=== PATIENT | female | born 1950 | race Caucasian/White ===

== ENCOUNTER 2017-02-12 12:40 | Observation (INO) | payer MEDICARE, OTHER ==
[2017-02-12] MEDS ORDERED: NS 0.9% 1000 ML* 1,000 ML IV ONE (13:40)
--- NOTE | 2017-02-12 14:11 | RAD ---
Indication: Transient visual disturbance. CT of the brain was performed without IV contrast. Ventricular structures are midline. No midline shift is noted. The extraction spaces are unremarkable. There is no evidence of intracranial mass or hemorrhage. No other high or low density lesions are identified. Mastoid air cells and paranasal sinuses are grossly unremarkable. IMPRESSION: No intracranial mass or hemorrhage present.
--- NOTE | 2017-02-12 14:22 | RAD ---
INDICATION: Weakness COMPARISON: August 24, 2014 TECHNIQUE: An AP portable view obtained at 1350 hours is submitted. FINDINGS: Bones/Soft Tissues: There are no acute bony findings. Cardiomediastinal: The cardiomediastinal silhouette is normal. Lungs: There are no infiltrates. There is mild hyperinflation. Pleura: There are no pleural effusions. Other: None IMPRESSION: HYPERINFLATION. NO ACTIVE DISEASE.
[2017-02-12 14:24] LABS: Hematocrit 47 % (35-47); Hemoglobin 15.4 g/dl (12.0-16.0); Mean Corpuscular HGB Conc 33 g/dl (31-36); Mean Corpuscular Hemoglobin 31 pg (27-31); Mean Corpuscular Volume 93 fL (80-97); Mean Platelet Volume 7 um3 (7.4-10.4); Red Blood Count 5.03 10^6/ul (4.0-5.4); Red Cell Distribution Width 13 % (10.5-15); White Blood Count 8.6 10^3/ul (3.5-10.8)
[2017-02-12 14:47] LABS: BUN/Creatinine Ratio 15.8 (8-20); Calcium 9.2 mg/dL (8.6-10.3); EGFR African American 136.5 (>60); EGFR Non-African American 106.1 (>60); Globulin 2.7 g/dL (2-4); Total Bilirubin 0.4 mg/dL (0.2-1.0); Total Protein 6.7 g/dL (6.4-8.9)
[2017-02-12 14:57] LABS: Potassium 4.5 mmol/L (3.5-5.0)
[2017-02-12 16:32] LABS: Urine Bilirubin Negative (Negative); Urine Glucose Negative (Negative); Urine Nitrite Negative (Negative)
[2017-02-12] MEDS ORDERED: hydrALAZINE IV* 20 MG/ML VIAL IV SLOW PU PRN (17:32)
[2017-02-12] MEDS ORDERED: Nicotine Inhaler* 10 MG AMP INH PRN (17:32)
[2017-02-12] MEDS ORDERED: Ondansetron INJ* 2 MG/ML VIAL IV PRN (17:34)
[2017-02-12] MEDS ORDERED: Acetaminophen TAB* 325 MG PO PRN (17:34)
[2017-02-12] MEDS ORDERED: Aspirin TAB* 325 MG PO ONE (17:36)
[2017-02-12] MEDS ORDERED: Meclizine TAB* 12.5 MG PO PRN (17:37)
[2017-02-12] MEDS ORDERED: Iohexol 350* (CONTRAST) 500 ML MDV IV ONE (17:41)
[2017-02-12] MEDS ORDERED: Enoxaparin(*) 40 MG/0.4 ML SYR SUBCUT SCH (18:00)
--- NOTE | 2017-02-12 19:08 | RAD ---
INDICATION: TIA. Visual change COMPARISON: CT brain February 12, 2017 TECHNIQUE: Axial source images were acquired with coronal and sagittal reconstructions. CT angiographic technique was utilized with injection of 80 mL Omnipaque 350. FINDINGS: Aortic arch: There are no CT angiogram abnormalities of the arch or the great vessels arising from the arch. There is a common origin of the carotid arteries in the left vertebral artery originates directly from the aorta. Right carotid: The internal carotid artery, carotid bifurcation, extracranial portions of the internal carotid artery, carotid artery at the skull base, carotid siphon, and carotid termination appear widely patent. There is minor calcific plaque at the carotid bifurcation and at the right carotid siphon. Left carotid:The internal carotid artery, carotid bifurcation, extracranial portions of the internal carotid artery, carotid artery at the skull base, carotid siphon, and carotid termination appear widely patent. There is minor calcified plaque at the bifurcation.. Right middle and anterior cerebral arteries: There are no CT angiographic abnormalities of the middle or anterior cerebral arteries. Left middle and anterior cerebral arteries: There are no CT angiographic abnormalities of the middle or anterior cerebral arteries Right vertebral: The vertebral artery is patent but very diminutive. Left vertebral: The left vertebral artery is dominant and its origin and has an anterior course before entering the vertebral foramen. Basilar artery: The basilar artery and basilar tip appear normal. Posterior cerebral arteries: The right posterior cerebral artery appears normal. There is a origin of the left posterior cerebral artery. [place]: The CT angiographic appearance of the [place] is with origin of the left posterior cerebral artery is noted above. Source images show no evidence of mass or adenopathy within the neck. There are no focal parenchymal abnormalities or abnormal areas of enhancement. IMPRESSION: NO SIGNIFICANT CT ANGIOGRAPHIC ABNORMALITIES. THERE ARE NORMAL VARIANTS AND THERE ARE MILD ATHEROSCLEROTIC CHANGES WITHOUT EVIDENCE OF SIGNIFICANT STENOSIS, ANEURYSM, OR BRANCH OCCLUSION. CPT II Codes: 3100F PQRS
--- NOTE | 2017-02-12 20:08 | RAD ---
INDICATION: TIA COMPARISON: CT brain same date; CTA head and neck same date TECHNIQUE: sagittal T1 FLAIR, axial diffusion, axial T1 FLAIR, and SWI images were acquired. T2-weighted sequences cannot be completed due to patient claustrophobia. FINDINGS: Craniocervical junction: The craniocervical junction appears normal. Ventricles/sulci: There is moderate cortical atrophy with compensatory dilatation of the CSF spaces. Brain parenchyma: There are no focal parenchymal abnormalities. There is no evidence of intracranial mass or mass effect. The diffusion weighted images show several small gyriform areas of increased signal in the left posterior parietal region near the vertex which could represent tiny foci of ischemia. Intracranial hemorrhage: There is no intracranial hemorrhage. Extra-axial spaces: There are no extra-axial fluid collections or masses. Orbits: There are no MR abnormalities of the orbital structures. Paranasal sinuses/mastoid: The paranasal sinuses are clear. The mastoid air cells are well aerated.. Vascular: No abnormalities are seen. Other: None IMPRESSION: A LIMITED EXAMINATION WAS PERFORMED DUE TO PATIENT CLAUSTROPHOBIA. THERE IS MODERATE CORTICAL ATROPHY. THERE MAY BE SEVERAL FOCI OF ACUTE ISCHEMIA IN LEFT POSTERIOR PARIETAL REGION NEAR THE VERTEX.
[2017-02-12] MEDS: Amoxicillin/Clavulanate TAB* 875 MG PO SCH (22:15)
--- NOTE | 2017-02-12 23:11 | ED ---
Mikala Mack Alok, scribed for Nickolas Fitzpatrick MD on 02/12/17 at 1343 . Dizziness - HPI Summary HPI Summary: 67F presents to the ED for dizziness for the last few weeks on and off, worsening temporarily during an episode a few days ago. Pt states that a few days ago she was watching television when the images on screen began to droop accompanied by dizziness and a slight KELLY. Pt states this visual disturbance lasted minutes before subsiding. Pt was unable to see her PCP prompting her visit to the ED today. Pt states her dizziness worsens with move/bending over and improves with rest. Pt denies nausea, fever, hematuria, or dysuria. Pt denies expressive aphasia or facial droop. Pt denies h/o stroke, HTN, or h/o migraine. - History Of Current Complaint Chief Complaint: EDDizziness Stated Complaint: DIZZINESS Hx Obtained From: Patient Timing: Intermittent Episode Lasting Severity Initially: Moderate Severity Currently: Moderate Character: Dizzy Aggravating Factor(s): Exertion, Position Change Alleviating Factor(s): Rest Associated Signs And Symptoms: Positive: Visual Changes, Other: - KELLY. Negative : Nausea, Fever - Allergies/Home Medications Allergies/Adverse Reactions: Allergies Allergy/AdvReac Type Severity Reaction Status Date / Time No Known Allergies Allergy Verified 05/01/13 09:25 PMH/Surg Hx/FS Hx/Imm Hx Cardiovascular History: Denies: Hx Hypertension Neurological History: Denies: Hx CVA, Hx Migraine - Surgical History Surgery Procedure, Year, and Place: c section Infectious Disease History: No Infectious Disease History: Denies: History Other Infectious Disease, Traveled Outside the [place] in Last 30 Days - Family History Known Family History: Positive: Other - No - Breast CA - Social History Occupation: Retired Lives: With Family Alcohol Use: Occasionally Substance Use Type: Reports: None Smoking Status (MU): Light Every Day Tobacco Smoker Review of Systems Negative: Fever, Chills Positive: Blurred Vision. Negative: Erythema Negative: Sore Throat Negative: Chest Pain Negative: Shortness Of Breath, Cough Negative: Abdominal Pain, Vomiting, Nausea Negative: dysuria, hematuria Negative: Myalgia, Edema Negative: Rash Neurological: Other - Dizziness. Negative: expressive aphasia, facial droop Positive: Headache All Other Systems Reviewed And Are Negative: Yes Physical Exam - Summary Physical Exam Summary: Constitutional: Well-developed, Well-nourished, Alert. (-) Distressed Skin: Warm, Dry HENT: Eyes: Conjunctiva normal Neck: Musculoskeletal ROM normal neck. (-) JVD, (-) Stridor, (-) Tracheal deviation Cardio: Rhythm regular, rate normal, Heart sounds normal; Intact distal pulses; The pedal pulses are 2+ and symmetric. Radial pulses are 2+ and symmetric. (-) Murmur Pulmonary/Chest wall: Effort normal. (-) Respiratory distress, (-) Wheezes, (-) Rales Abd: Soft. (-) Tenderness, (-) Distension, (-) Guarding, (-) Rebound Musculoskeletal: (-) Edema Lymph: (-) Cervical adenopathy Neuro: Alert, Oriented x3, Strength normal, Cranial nerves II-XII are grossly intact. (-) Dysmetria, (-) Nystagmus, (-) Ataxia by finger to nose testing, (-) Sensory deficit. Psych: Mood and affect Normal Triage Information Reviewed: Yes Vital Signs On Initial Exam: Initial Vitals Temp Pulse Resp BP Pulse Ox 97.6 F 80 18 179/111 100 02/12/17 12:49 02/12/17 12:49 02/12/17 12:49 02/12/17 12:49 02/12/17 12:49 Vital Signs Reviewed: Yes Diagnostics - Vital Signs Vital Signs Temp Pulse Resp BP Pulse Ox 02/12/17 12:53 97.6 F 72 20 179/111 100 02/12/17 12:49 97.6 F 80 18 179/111 100 - Laboratory Result Diagrams: 02/12/17 14:15 02/12/17 14:15 Lab Statement: Any lab studies that have been ordered have been reviewed, and results considered in the medical decision making process. - Radiology CXR Xray Interpretation: Positive (See Comments) - IMPRESSION: HYPERINFLATION. NO ACTIVE DISEASE. Radiology Interpretation Completed By: Radiologist - CT Brain CT CT Interpretation: Positive (See Comments) - IMPRESSION: No intracranial mass or hemorrhage present. CT Interpretation Completed By: Radiologist - EKG 1310 Cardiac Rate: NL - 68 bpm EKG Rhythm: Sinus Rhythm EKG Interpretation: No STEMI. Dizzy Course/Dx - Course Assessment/Plan: Discussed patient care with Dr. Whitney (Neurologist) @ 1620 - Pt could recieve an expidited TIA workup as OP, but since pt PCP is on vacation this cannot happen. - Diagnoses Differential Diagnosis/HQI/PQRI: Transient Ischemic Attack - R/o Provider Diagnoses: Dizziness, Visual disturbance - Provider Notifications Discussed Care Of Patient With: Sandee Felicia - Will admit pt to [facility] Time Discussed With Above Provider: 16:07 Discharge - Discharge Plan Condition: Stable Disposition: ADMITTED TO [facility] Referrals: Phoenix Castillo MD [Primary Care Provider] - The documentation as recorded by the Mikala sommers Alok accurately reflects the service I personally performed and the decisions made by , Nickolas Fitzpatrick MD.
--- NOTE | 2017-02-12 23:34 | HP ---
HISTORY AND PHYSICAL: * ADDENDUM: Mr. Cardoza is a 67-year-old female, who has had problems with upper respiratory infection for the past several days and who presented with dizziness that had been ongoing for 3 weeks and an episode of visual disturbance [address] Day saw the patient in ED evaluation and recommended TIA workup. The patient is going to be placed on overnight observation with further TIA workup as documented in history and physical dictated by Callie Infante NP, on 02/12/17, with which I agree. [id number]/[facility] #: [id number] [facility]
--- NOTE | 2017-02-13 00:07 | HP ---
ATTENDING PHYSICIAN ADDENDUM NOW INCLUDED ON THIS REPORT CC: KHAI Che* MEDICINE HISTORY AND PHYSICAL: DATE OF ADMISSION: 02/12/17 PROVIDER: Hari Garnica NP ATTENDING PHYSICIAN: Dr. Stefania Sultana* (as dictated by Hari Garnica NP). CONSULTING PHYSICIAN: Dr. Marilou Whitney. PRIMARY CARE PROVIDER: KHAI Che CHIEF COMPLAINT: Dizziness. HISTORY OF PRESENT ILLNESS: Ms. Cardoza is a 67-year-old female with no reported significant past medical history, who presented to the ER today for evaluation of dizziness and a transient episode of visual disturbance. The patient states that she has been having issues with dizziness off and on for several weeks now. Pharmacy records show that she has been on levofloxacin and azithromycin for treatment of a suspected sinus infection. This was prescribed by her PCP. Of note, the patient states that she did not finish her previous prescription because it caused diarrhea and she stopped taking it. At any case , the patient felt as if the dizziness started to improve for a while; however, on Saturday, February 09, she reports that she was sitting and watching TV and then had an experience where she felt like the eyes were elongated and distorted and this lasted for approximately 5 minutes. Following this occurrence, the patient felt dizzy and also describes a headache across the front of her forehead and this resolved within half an hour. She has had intermittent dizziness since then and did attempt to reach her PCP on Saturday; however, he is out of town on vacation. She finally came in today for further evaluation, as she suspected this may represent a larger issue and was concerned. She does report some dizziness this morning with accompanying headache, but none currently. She denies headache right now. When describing the dizziness, she denies room spinning or feeling as if she is going to fall or pass out. She does state that she mostly feels off balance and she mostly noticed it when she is changing position or bending or to pick something up. She states that she no longer even bends over to reach for things because she knows she is going to get dizzy and she also denies moving quickly and states that she changes positions very slowly in order to prevent any dizzy episodes. She has been treating her sinus infection with Claritin and Mucinex. She does take ibuprofen occasionally for her headaches. In the ER, the patient's laboratory findings and imaging were mostly benign. Her lungs do show hyperinflation on the chest x-ray. She is notably hypertensive here in the ER, but states that she has no previous history of hypertension and states that her blood pressures are usually in the 120s to 130s for systolic pressure. PAST MEDICAL HISTORY: The patient states that she was told that she has pre COPD, but has never had any formal evaluation for this. HOME MEDICATIONS: The patient takes: 1. Aspirin 81 mg daily. 2. Claritin 10 mg daily p.r.n. 3. Guaifenesin ER 600 mg b.i.d. p.r.n. ALLERGIES: No known allergies. FAMILY HISTORY: She reports her mother had hypertension who at age 72 and a brother with heart disease. SOCIAL HISTORY: She reports drinking a few cups of coffee today and feels that she does drink a good amount of water and fluid intake. She does report daily alcohol use and states that she drinks a couple of glasses of wine most nights. She is a current tobacco user and states that she has recently cut down from a pack per day to half a pack per day. She has a 30- to 40-year history of smoking. 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 She lives at home with her domestic partner, Perry Garsia. She is independent with her ADLs. Her surrogate decision maker is Perry Garsia, her domestic partner. REVIEW OF SYSTEMS: As per HPI. A 12-point review of systems was completed. All those not mentioned are negative. PHYSICAL EXAMINATION GENERAL: Ms. Cardoza is a very pleasant 67-year-old female who is sitting up in the ED stretcher, in no acute distress. VITAL SIGNS: Temperature 97.6, heart rate 72, respiratory rate 16, blood pressure 163/89, and O2 saturations 98% on room air. HEENT: Head is atraumatic, normocephalic. Face is symmetrical. Pupils are equal, round, reactive to light and accommodation. Extraocular movements are intact. There is no tenderness along the frontal and ethmoid sinuses. Oral mucosa appears moist. No oropharyngeal erythema noted. NECK: Supple. No lymphadenopathy appreciated. No JVD noted. RESPIRATORY: Lungs are clear to auscultation. Slightly diminished. CARDIAC: S1, S2 heart sounds. Regular rate and rhythm. No murmurs, rubs, or gallops. There is no peripheral edema. The patient does have 2+ distal pulses to the lower extremities. ABDOMEN: Soft, nontender, nondistended. MUSCULOSKELETAL: There is no clubbing or cyanosis. The patient has full range of motion in all major joints. NEURO: Cranial nerves II through XII are grossly intact. The patient moves all extremities. Sensation is intact to lower extremities to light touch. The patient is able to perform [id number] testing, has 5/5 strength in the upper and lower extremities. [place]erry Operator are equal bilaterally. There is no facial droop. The patient's speech is clear. PSYCH: She is alert and oriented x3. Affect is appropriate. SKIN: Limited assessment, but appears grossly intact. DIAGNOSTIC STUDIES/LAB DATA: CBC: WBC 8.6, hemoglobin 15.4, hematocrit 47, platelet count 264. CMP: Sodium 138, potassium 4.5, chloride 104, BUN 9, creatinine 0.57, glucose 89, lactic acid 0.8, calcium 9.2. Total bilirubin 0.4 , AST 19, ALT 11, alk phos 55. Total protein 6.7, albumin 4.0. Urinalysis shows trace ketones. CT of the brain shows no intracranial mass or hemorrhage present. Chest x-ray shows mild hyperinflation of the lungs, but no active disease, and her EKG shows normal sinus rhythm with no ST elevations or ischemic changes. ASSESSMENT AND PLAN: Ms. Cardoza is a 67-year-old female, who presented with dizziness and an episode of visual disturbance with concern for potential transient ischemic attack. She will be admitted under observation to the telemetry unit. Plan is as follows: 1. Dizziness with visual disturbance: Continue to monitor the patient on telemetry. As her physician is out of town, it would be prudent to check an MRI and CTA following this event as she may have a recurrence before getting in to see her PCP. We will also check an echocardiogram, neurological checks, and monitor her on the telemetry unit. We will check a lipid profile and A1c. The patient has been advised to stop smoking as this is increasing her risk factors. She also appears to be hypertensive, although she denies any previous history of this. The case was discussed with Dr. Whitney. The patient's symptoms may represent exacerbation of her sinusitis, but this also may represent a transient ischemic attack or perhaps a migraine. Appreciate neurological input. 2. Sinusitis: The patient appears and sounds chronically congested. She did not finish her previously prescribed antibiotic and with her continued dizziness and reports of headaches, it would be beneficial for her to finish a full course of antibiotics in order to treat this. We will continue her Claritin and Mucinex. Continue to monitor. 3. High blood pressure: The patient's blood pressure was noted to be elevated here in the ER with systolic pressures noted in the 170s up to the 180s. I am not sure how accurate this is as it does seem likely variable; however, given the patient's symptoms and concern for transient ischemic attack, we will closely monitor her blood pressures. She is not on any blood pressure medications at this time. I will order p.r.n. hydralazine to track the necessity of this medication. Continue to follow. 4. Question of chronic obstructive pulmonary disease: The patient states that she has been diagnosed with pre-chronic obstructive pulmonary disease, but has never had pulmonary function tests and is not currently on a maintenance inhaler. She is currently not in any respiratory distress. I did not appreciate any significant wheezing or adventitious lung sounds. Continue to follow. The patient is recommended to follow up with her PCP for PFTs and I have advised her to stop smoking. 5. High-risk alcohol use: The patient drinks wine most nights. I do not see any abnormal LFTs or evidence of . We will monitor closely. The patient was advised that frequent alcohol use will increase her risk for frequent health issues and she has received this information well. 6. Tobacco abuse: The patient is a [id number] smoker. She is trying to cut back on her smoking. I have advised her the importance of quitting smoking. While she is here, we will order for nicotine replacement. 7. FEN: The patient is ordered a heart-healthy diet. 8. DVT prophylaxis: The patient is ordered subcu Lovenox. 9. Code status: She is a full code. TIME SPENT: Time spent on this admission was approximately 60 minutes, more than half the time was spent [id number] with the patient obtaining history and physical, performing physical examination, and reviewing the plan of care. Plan of care was also reviewed with my attending, Dr. Sultana, who is in agreement. HARI GARNICA NP ADDENDUM: Ms. Cardoza is a 67-year-old female who has had problems with upper respiratory infection for the past several days and who presented with dizziness that had been ongoing for 3 weeks and an episode of visual disturbance [address] Day saw the patient in ED evaluation and recommended TIA workup. The patient is going to be placed on overnight observation with further TIA workup as documented in history and physical dictated by Hari Garnica NP, on 02/12/17, with which I agree. STEFANIA SULTANA MD [id number]/[facility] #: [id number]/[facility] #: [id number] EMILY
[2017-02-13 06:07] LABS: HDL Cholesterol 65.6 mg/dL
[2017-02-13] MEDS ORDERED: Nicotine PATCH 21 MG/24 HR* PATCH TRANSDERM SCH (08:00)
[2017-02-13] MEDS ORDERED: Aspirin Low Dose CHEW TAB* 81 MG PO SCH (09:00)
[2017-02-13] MEDS ORDERED: Mouth Piece, Nicotine* 1 EACH CARTRIDGE ONE (09:28)
[2017-02-13] MEDS: Amoxicillin/Clavulanate TAB* 875 MG PO SCH (09:28)
--- NOTE | 2017-02-13 09:48 | PN ---
Subjective Date of Service: 02/13/17 Interval History: Patient seen and examined at bedside. No further c/o dizziness overnight or this AM. Denies CP, SOB, abd pain, n/v. Patient reports episode of severe anxiety with MRI. No acute complaints. Family History: Unchanged from Admission Social History: Unchanged from Admission Past Medical History: Unchanged from Admission Objective Active Medications: Acetaminophen (Tylenol Tab*) 650 mg PO Q4H PRN PRN Reason: FEVER/PAIN Amoxicillin/Clavulanate Potassium (Augmentin Tab*) 875 mg PO BID [facility] Last Admin: 02/13/17 09:28 Dose: 875 mg Aspirin (Aspirin Low Dose Tab*) 81 mg PO DAILY [facility] Last Admin: 02/13/17 09:29 Dose: 81 mg Enoxaparin Sodium (Lovenox(*)) 40 mg SUBCUT Q24H [facility] Last Admin: 02/12/17 20:16 Dose: 40 mg Hydralazine HCl (Apresoline Iv*) 5 mg IV SLOW PU Q6H PRN PRN Reason: BLOOD PRESSURE Meclizine HCl (Antivert Tab*) 25 mg PO Q8HR PRN PRN Reason: DIZZINESS Nicotine (Nicotine Inhaler*) 10 mg INH Q2H PRN PRN Reason: CRAVING Last Admin: 02/13/17 09:29 Dose: 10 mg Nicotine (Nicotine Patch 21 Mg/24 Hr*) 1 patch TRANSDERM DAILY@0800 [facility] Last Admin: 02/13/17 09:29 Dose: Not Given Ondansetron HCl (Zofran Inj*) 4 mg IV Q6H PRN PRN Reason: NAUSEA/VOMITING Pharmacy Profile Note (Nicotine Patch Removal Note*) 1 note PATCH OFF 2100 [facility] Vital Signs 02/12/17 02/12/17 02/12/17 16:30 17:00 17:27 Temperature Pulse Rate 73 70 Respiratory 20 19 18 Rate Blood Pressure 163/89 170/81 (mmHg) O2 Sat by Pulse 98 97 Oximetry 02/12/17 02/12/17 02/12/17 19:38 19:46 20:00 Temperature 98.5 F 98.7 F Pulse Rate 63 67 Respiratory 20 18 18 Rate Blood Pressure 154/83 188/92 (mmHg) O2 Sat by Pulse 98 100 Oximetry 02/12/17 02/13/17 02/13/17 23:29 03:30 07:19 Temperature 98.4 F 97.8 F 98.6 F Pulse Rate 66 70 69 Respiratory 16 16 20 Rate Blood Pressure 149/77 138/72 134/88 (mmHg) O2 Sat by Pulse 98 99 97 Oximetry 02/13/17 08:00 Temperature Pulse Rate Respiratory 16 Rate Blood Pressure (mmHg) O2 Sat by Pulse Oximetry Oxygen Devices in Use Now: None Appearance: Female patient, ambulating in room, NAD Eyes: PERRLA Ears/Nose/Mouth/Throat: Mucous Membranes Moist Neck: NL Appearance and Movements; NL JVP Respiratory: Symmetrical Chest Expansion and Respiratory Effort, Clear to Auscultation Cardiovascular: NL Sounds; No Murmurs; No JVD, RRR Abdominal: NL Sounds; No Tenderness; No Distention Extremities: No Edema Neurological: Alert and Oriented x 3, NL Gait, NL Muscle Strength and Tone Lines/Tubes/Other Access: Clean, Dry and Intact Peripheral IV Result Diagrams: 02/12/17 14:15 02/12/17 14:15 Assess/Plan/Problems-Billing Assessment: Ms. Cardoza is a 67 yo female who presented to the ED on 02/12 with concern for intermittent dizziness and a visual disturbance; pt admitted for TIA evaluation as PCP is out of town and could not expedite workup. - Patient Problems (1) Dizziness Code(s): R42 - DIZZINESS AND GIDDINESS Comment: With one transient episode of visual disturbance on 02/09 Has been intermittent and previously thought to be connected to sinusitis With visual disturbance, concern for TIA CTA head/neck with no evidence of significant stenosis, aneurysm or branch occlusion. MRI brain with potentially several foci of acute ischemia in left posterior parietal region. Appreciate neuro input. PT/OT eval (2) Sinusitis Code(s): J32.9 - CHRONIC SINUSITIS, UNSPECIFIED Comment: Patient with chronic congestion and c/o headaches along frontal sinus Did not complete previous antibiotic for treatment of sinusitis due to AE of diarrhea Augmentin ordered, given pt's c/o dizziness and frontal headaches (3) HTN (hypertension) Code(s): I10 - ESSENTIAL (PRIMARY) HYPERTENSION Comment: Improved from admission SBP now 140s ? if in response to potential TIA/ischemia seen on imaging; will allow permissive HTN Pt will need further outpatient f/u with PCP if persistent HTN (though she states it is usually 120/60s-80s. (4) Tobacco abuse Code(s): Z72.0 - TOBACCO USE Comment: I have advised to patient to quit smoking. She has moderate motivation at this time. Continue prn nicotine replacement. (5) DVT prophylaxis Comment: SQ enoxaparin Status and Disposition: OBV admit. D/c to home when medically stable.
--- NOTE | 2017-02-13 15:13 | ECHO ---
Patient: SARAH QUEZADA [facility] Rec#: [id number] : 1950 Date: 02/13/2017 Age: 67y Height: 172.72 cm / 68.0 in Weight: 56.7 kg / 125.0 lbs Sex: F BSA: 1.67 Room#: [facility] Admit Date#: 02/12/2017 Type: Inpatient Referring: Callie Infante Reading: Vicky Okeefe MD Underground Miner: Kimberley Shaikh RDCS CC: KHAI Che Transthoracic Echocardiogram Indication: TIA BP: 138/72 HR: 76 Rhythm: NSR Findings History: COPD,smoker,TIA symptoms. Technical Comments: The study quality is good. Completed at 1440. Left Ventricle: The left ventricular chamber size is decreased. Mild to moderate concentric left ventricular hypertrophy is observed. There is a prominent septal knuckle.with turbulance and gradient in the LVOT. Global left ventricular wall motion and contractility are within normal limits. The estimated ejection fraction is 60-65%. Abnormal left ventricular diastolic function is observed. Left Atrium: The left atrium is moderately dilated. Right Ventricle: The right ventricular cavity size is normal. The right ventricular global systolic function is normal. Right Atrium: The right atrial cavity size is normal. A patent foramen ovale is not demonstrated with color Doppler and agitated contrast. Aortic Valve: The aortic valve is trileaflet. Mild aortic cusp sclerosis is present. There is no evidence of aortic regurgitation. There is no evidence of aortic stenosis. Mitral Valve: The mitral valve leaflets are mildly thickened. There is mild mitral regurgitation. There is no evidence of mitral stenosis. Tricuspid Valve: The tricuspid valve leaflets are normal. There is trace tricuspid regurgitation. Unable to estimate the right ventricular systolic pressure. There is no tricuspid stenosis. Pulmonic Valve: The pulmonic valve structure is not well visualized. Pericardium: The pericardium appears normal. Aorta: There is no dilatation of the ascending aorta. There is no dilatation of the aortic arch. There is no dilation of the aortic root. Pulmonary Artery: The main pulmonary artery appears normal. Venous: The inferior vena cava appears normal in size. There is a greater than 50% respiratory change in the inferior vena cava dimension. Contrast: Normal saline was used as contrast for the bubble study. Intravenous contrast was used to help determine presence of intracardiac shunting. Conclusions Mild to moderate concentric left ventricular hypertrophy is observed. Global left ventricular wall motion and contractility are within normal limits. The estimated ejection fraction is 60-65%. Basal septal hypertrophy and an outflow tract gradient, dagger shaped LVOT envelopes up to 3 m/sec. Abnormal left ventricular diastolic function is observed. The right ventricular global systolic function is normal. Aortic valve sclerosis, no evidence of significant stenosis, see notes regarding pre-aortic/LVOT obstruction. There is mild mitral regurgitation. There is trace tricuspid regurgitation. The left atrium is moderately dilated. No evidence of a patent foramen ovale with color Doppler and agitated contrast. No prior study to compare. Measurements Name Value Normal Range RVIDd (AP) 2D 2.3 cm (0.9 - 2.6) RVDdMajor (2D) 2.6 cm (2.2 - 4.4) RAd ISD 4CH 3.9 cm (3.4 - 4.9) RA (A4C)W 3.5 cm (2.9 - 4.6) IVSd (2D) 1.4 cm (0.6 - 1) LVPWd (2D) 1.1 cm (0.6 - 1) LVIDd (2D) 3.2 cm (3.6 - 5.4) LVIDs (2D) 1.9 cm - LV FS (2D) 40 % (25 - 45) Aortic Annulus 2.1 cm (1.4 - 2.6) Ao root diameter (2D) 3.4 cm (2.1 - 3.5) Ascending Ao 2.9 cm (2.1 - 3.4) Aortic arch 2.2 cm (1.8 - 3.4) Descending Ao 0.8 cm - LA dimension (AP) 2D 4.8 cm (2.3 - 3.8) LAd ISD 4CH 4.8 cm (2.9 - 5.3) LA ISD 4CH W 3.6 cm (2.5 - 4.5) Name Value Normal Range LA ESV SP 4CH (A/L) 31 ml - LA ESV SP 2CH (A/L) 45 ml - LA ESV BP (A/L) 39 ml - LA ESV BP (A/L) index 23.32 ml/m2 - LA ESV SP 4CH (MOD) 29 ml - LA ESV SP 2CH (MOD) 45 ml - Name Value Normal Range MV E-wave Vmax 1.2 m/sec - MV deceleration time 224 msec - MV A-wave Vmax 1 m/sec - MV E:A ratio 1.13 ratio - LV septal e' Vmax 0.07 m/sec - LV lateral e' Vmax 0.1 m/sec - LV E:e' septal ratio 17.14 ratio - LV E:e' lateral ratio 12 ratio - Name Value Normal Range AV Vmax 2.6 m/sec - AV VTI 63.4 cm - AV peak gradient 26.65 mmHg - AV mean gradient 17.9 mmHg - Name Value Normal Range IVC diameter 1.6 cm -
[2017-02-13 16:56] VITALS: BP 134/69
[2017-02-13] MEDS ORDERED: Nicotine Patch Removal NOTE PATCH OFF SCH (21:00)
--- NOTE | 2017-02-14 03:25 | CONS ---
NEUROLOGY CONSULTATION: DATE OF CONSULT: 02/13/17 REASON FOR CONSULT: Dizziness and visual disturbance. REQUESTING PROVIDER: Callie Infante NP HISTORY OF PRESENT ILLNESS: Kaleigh Cardoza is a 67-year-old woman with a history of tobacco abuse and hypertension who presented to the emergency department yesterday with complaints of approximately 3 to 4 weeks of intermittent dizziness as well as visual disturbance which occurred 3 days prior to presentation. Her primary care provider was on vacation when she called on Saturday, so, she decided to present to the ER on Saturday for further evaluation of the symptoms. She reports that she has been having intermittent dizziness, which is better described as a sense of motion with position changes for about 3 or 4 weeks. Each episode is brief and she does not describe oneal vertigo, but does make reference to feeling off balance or as though the room is moving or she is moving. This can occur when she bends over and then stands back up or if she stands up too quickly and also may happen when she rolls over in bed, but she is unsure if it happens in one direction preferentially. She denies any slurred speech, extremity weakness, extremity numbness, dysphagia with these episodes. On Saturday, when she was watching television she suddenly noticed that the eyes of the people on TV looked as though they were drooping in the lower lids. Her partner then entered the room and his eyes looked the same way but then it completely resolved within couple of minutes. She had dull frontal headache after this and had also experienced some flashing lights off to the left peripheral vision before the headache started. She denies any significant history of migraine headaches though does admit to dull frontal headaches intermittently with some associated phonophobia, no photophobia, and no nausea or vomiting. She denies any throbbing quality to the pain. Her son also has migraine headaches. Since her admission she has undergone workup for a TIA including CT of the brain , CT angiogram, transthoracic echocardiogram, and MRI scan of the brain. The CT and CTA were unremarkable. She was unable to tolerate the full sequence for the MRI and did not undergo a FLAIR sequence, but her DWI shows some possible subacute areas of punctate ischemia in a gyral pattern in the left parietal lobe towards the vertex. I reviewed this and I am not convinced that it is not T2 shine through, but because she was not able to tolerate other sequences it cannot be confirmed. PAST MEDICAL HISTORY: 1. Hypertension, per the emergency department, though patient does not report that and does not take any medication for it. 2. Tobacco abuse. 3. The patient has been told she has "pre COPD." HOME MEDICATIONS: 1. Aspirin 81 mg. 2. Claritin 10 mg. 3. Mucinex daily. ALLERGIES: No known drug allergies. FAMILY HISTORY: Mother with hypertension and a brother with heart disease. SOCIAL HISTORY: She drinks two glasses of wine daily. She is a 30 to 40-year- pack smoking history. She is retired. She lives with her domestic partner, Perry. REVIEW OF SYSTEMS: She denies any recent weight loss, appetite changes. She has some cough which she attributes to some sinus issues she has been having. Most recently her PCP has been treating her dizziness with various antibiotics for presumed sinusitis which has not had a significant effect. PHYSICAL EXAM: Vital Signs: Temperature 98.1, blood pressure is 134/69, heart rate in the 60s to 70s. Oxygen saturation is 97% on room air. I note that on admission her blood pressure is elevated at 179/111 but then fluctuated to a good degree through today. In general exam, she is pleasant in no acute distress. She appears older than stated age. Her heart is in a regular rate and rhythm. There is no murmurs, rubs, or gallops. Lungs are clear to auscultation bilaterally. There are no carotid bruits. On neurologic exam, she is fully awake, alert, and oriented. Her speech is slow and somewhat unclear at times to my ear, but she asserts that it is her baseline and her daughter-in- law who is present also said that this was her usual speech. On cranial nerve testing, her pupils are equal, round and reactive from 3 to 2 mm bilaterally. There are no obvious funduscopic abnormalities. Versions are full without nystagmus. Lujan are full to confrontation. Facial sensation and musculature is full and symmetric. Hearing is intact to finger rub. The palate elevates symmetrically, and the tongue is midline. On motor examination, there is normal bulk and tone in the upper and lower extremities. She has no pronator drift. She has mild approximately 4+ weakness of the right deltoid, but reports that she had fractured that arm in the past. She is strong distally. Strength is full in the lower extremities and in the left upper extremity. I do note that she has high arches and hammertoes and reports her parents have the same. On sensory examination, she is intact to light touch in the upper and lower extremities. Vibration was absent at the left toe and present at the right toe to 12 seconds, proprioception was intact bilaterally. With eyes closed, she missed touching her nose several times with the right index finger. Reflexes are 2+ in the upper extremities, 3+ at the right knee, 2+ at the left knee, absent at the ankles with mute toes bilaterally with Helena's maneuver. [id number] and [id number] are intact without ataxia. Romberg is negative. She is able to rise onto her heels and toes with some difficulty. Tandem was intact. [place]- [place] was performed and with head turned to the left she got mildly symptomatic, but there was no nystagmus and she got more symptomatic when she was sat upright again but to the right was negative. DIAGNOSTIC STUDIES/LAB DATA: Laboratory data reviewed include a CBC and CMP which are both unremarkable. Hemoglobin A1c was 5.7, lipids showed triglycerides 106, total cholesterol 176, LDL 89, HDL 65.6. The urinalysis was negative for infection. As noted above CT of the brain and CT angiogram of the head and neck were personally reviewed and were largely unremarkable. She has some normal variations of her vasculature including a dominant left vertebral artery and a origin of the left [employer], but no areas of significant stenosis, occlusion, or malformation. MRI of the brain as detailed above. Transthoracic echocardiogram showed an ejection fraction of 60% to 65%. In addition the description noted that she has a prominent septal knuckle with turbulence and gradient in the left ventricular outflow tract which creates a dagger shaped flow. She has no PFO. She has moderate dilation of the left atrium. IMPRESSION: Kaleigh Cardoza is a 67-year-old woman with vascular risk factors of smoking and probable hypertension who presented for evaluation after she experienced visual disturbance followed by slight headache in the setting of approximately 3 to 4 weeks of intermittent dizziness/vertigo. In the workup for these problems, she underwent MRI scan which indicates the suggestion of some possible ischemia in the left parietal region. I reviewed this and I am not entirely convinced that there is ischemia, but she was not able to undergo a FLAIR sequence and it is difficult to know whether these areas on DWI are T2 shine through or areas of subacute infarction. The areas are in her left parietal region which would not explain her dizziness or her visual disturbance but could possibly explain some soft findings on her exam including her inability to touch her nose with her right finger with eyes closed and maybe some right shoulder weakness as well, though she did not really have an upper motor neuron pattern for her weakness. She is claustrophobic and is not willing to repeat the MRI scan even with sedation and so to err on the side of caution I would have her change from aspirin to Plavix at this time. She describes some periods of fluttering of her chest when she is lying down at night and if this continues she may benefit from longer term cardiac rhythm monitoring as an outpatient. Here in the hospital, she has had no signs of atrial fibrillation. In addition, it is possible that some of her symptoms of dizziness could be related to her findings on her echocardiogram, with a tight LVOT which can cause symptoms similar to aortic stenosis. In discussion with Dr. Okeefe the medical treatment of this is typically to stay hydrated and to reduce the heart rate to allow for filling of the ventricle and she may benefit from an outpatient cardiology consult as well. Her dizziness might also be peripheral in nature, so I suggested physical therapy and she is willing to do that in [place] with a referral. I explained to her that I am not entirely sure what her visual symptoms was but it could have been migrainous in nature. I would like to follow up with her in my office within 4 to 8 weeks and will help to arrange this through my office. [id number]/[facility] #: [id number] EMILY
--- NOTE | 2017-02-15 10:38 | DS ---
CC: Phoenix Castillo MD; KHAI Che DISCHARGE SUMMARY: DATE OF ADMISSION: 02/12/17 DATE OF DISCHARGE: 02/13/17 PROVIDER: Hari Garnica NP. ATTENDING PHYSICIAN: Dr. Zheng Dupont (as dictated by Hari Garnica NP) CONSULTING PHYSICIAN: Dr. Marilou Whitney, Neurology PRIMARY CARE PHYSICIANS: KHAI Che, previously Phoenix Castillo MD PRIMARY DISCHARGE DIAGNOSES: 1. Area of ischemia to left parietal region with concern for cerebrovascular accident. 2. Dizziness, cause unknown, cardiogenic versus peripheral causes. 3. Recurrent sinusitis. SECONDARY DISCHARGE DIAGNOSIS: Seasonal allergies. MEDICATIONS AT DISCHARGE: 1. Plavix 75 mg daily. 2. Metoprolol tartrate 12.5 mg daily. 3. Augmentin 875 mg b.i.d. The patient may resume previous medications: 1. Guaifenesin ER 600 mg b.i.d. p.r.n. 2. Loratadine 10 mg daily p.r.n. DIAGNOSTIC TESTING DURING THIS ADMISSION: Chest x-ray from 02/12/17 shows hyperinflation. No active disease. CT of the brain from 02/12/17. Impression: No intracranial mass or hemorrhage present. MRI of the brain from 02/12/17. Impression: A limited examination was performed due to the patient's claustrophobia. There is moderate cortical atrophy. There may be several foci of acute ischemia in the left posterior parietal region near the vertex. Head and neck CTA from 02/12/17. Impression: No significant CT angiographic abnormalities. There are normal variants and there are mild atherosclerotic changes without evidence of significant stenosis, aneurysm, or branch occlusion. Transthoracic echocardiogram: The left ventricular chamber size is decreased. Mild to moderate concentric left ventricular hypertrophy is observed. There is a prominent septal knuckle with turbulence and gradient in the LVOT. Global left ventricular wall motion and contractility are within normal limits. The estimated ejection fraction is 60% to 65%. Abnormal left ventricular diastolic function is observed. Basal septal hypertrophy and an outflow tract gradient, dagger-shaped LVOT envelops up to 3 m/sec. Aortic valve sclerosis, no evidence of significant stenosis, see notes regarding preaortic LVOT obstruction. The right ventricular global systolic function is normal. There is some mild mitral regurgitation. There is trace tricuspid regurgitation. The left atrium is moderately dilated. No evidence of a patent foramen ovale with color Doppler and echogenic contrast. No prior study for comparison. HOSPITAL COURSE OF STAY: For full details, please refer to the H and P provided on 02/12/17. In summary, Ms. Cardoza presented to the ER on 02/12/17 with concern for dizziness and a transient episode of visual disturbance. The patient reports an ongoing complaint of dizziness that has been occurring intermittently for several weeks. Pharmacy records obtained in the ER show that she had been on the prescribed levofloxacin and azithromycin for treatment of a suspected sinus infection. However, the patient states that she did not finish her previous prescription due to side effects of diarrhea. The incident that prompted her to consider coming into the ER occurred on 02/09/17 , when she felt that the faces on the TV screen had suddenly become elongated and distorted while she was sitting and watching TV. This distortion lasted for approximately 5 minutes. Following this occurrence, the patient felt dizzy and described a headache across the front of her forehead. This resolved within half an hour. Since then, she has had intermittent dizziness. Her PCP has been out of town and so she decided to come into the ER for further evaluation and treatment of this. The patient was admitted overnight for observation with concerns for potential TIA. She does carry risk factors, which include tobacco use, hypertension, at least what was seen in the ER. Testing was done and the patient did have a Neurology consult prior to discharge. There are two areas of concern in regards to her workup. The first being the patient's prominent septal knuckle with turbulence and a gradient in the left ventricular outflow tract, which creates a dagger-shaped flow. This was discussed with Dr. Okeefe. She states that a tight LVOT may cause symptoms similar to aortic stenosis. I recommended the patient stay hydrated as well as have a good rate control in order to allow for proper filling of the ventricle. She also recommended the patient would benefit from an outpatient cardiology consult. This was discussed with the patient and she was recommended to follow up with her PCP, to establish with the PCP and to obtain a Cardiology consult via her PCP as we are unable to have one here in the hospital prior to discharge. It was felt that it is appropriate and safe for the patient to be discharged home on a low dose beta- thom and she will obtain an outpatient cardiology followup. Other than intermittent dizziness with positional changes, patient denies chest pain, dyspnea, activity intolerance or other symptoms of concerns. We did start her on metoprolol. The other point of concern was the patient's MRI. The patient reports that she was very agitated by the scan and at one point just had to get up and leave because it was so distressing for her secondary to her anxiety and claustrophobia. The patient was offered a repeat MRI scan with the help of an anti- anxiety medication, but she declined. In discussion with Neurology and per her consult, it was felt that because we do not have a FLAIR sequence from the MRI, it is difficult to know whether the areas on the MRI of concern are T2 shine or areas of subacute infarction. The areas in her left parietal region would not really explain her dizziness or visual disturbance, but could possibly explain some findings on her neurological exam that is documented by Dr. Whitney's consultation, which includes an inability to touch her nose with her right finger with her eyes closed and maybe some right shoulder weakness as well. Because the patient was unable and unwilling to repeat her MRI scan at this time, it is most prudent to treat her as if she actually had an acute CVA, and the patient has been changed from aspirin to Plavix. The patient also described some periods of fluttering in her chest when she is lying down at night, and it was felt that she may benefit from long-term cardiac rhythm monitoring as an outpatient. Here in the hospital, she has had no signs of arrhythmias or ectopy and has been in sinus rhythm on the playback operator. 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 In regards to the visual symptoms, it is unclear, but this may have also been migrainous in nature. The patient was recommended to have a neurological followup in 4 to 8 weeks and the neurology office is aware. In regards to the patient's previous sinus infection, I have started her on Augmentin and advised the patient to finish her antibiotic treatment as this may also be contributing to her complaints of dizziness and frontal headaches. CONCERNS AT DISCHARGE: Ms. Cardoza is discharged to home on 02/13/17. OUTPATIENT FOLLOWUP NEEDS: The patient needs a Cardiology referral for further evaluation and monitoring of the septal knuckle and left ventricle outflow tract. She has been started on a beta-thom for better rate control, has been advised to stay well hydrated. Additionally, she needs neurological followup for suspected CVA as well as the atypical nature of her neurological symptoms. She also needs physical therapy for potential vestibular rehabilitation. The patient has been advised to stop smoking. She states that she will work on improving this and will address with her PCP as needed in the event she chooses to use nicotine replacement therapy. DIET: Heart healthy diet. ACTIVITY: As tolerated. CONDITION: Stable. DISPOSITION: To home. TIME SPENT: Time spent on this discharge was approximately 50 minutes. Again, this is only a brief summary of the patient's hospital course of stay. For full details, please refer to the full medical record. If you have any further questions or need further assistance, please feel free to contact me at . HARI GARNICA NP [id number]/[facility] #: [id number] EMILY
== END 2017-02-13 18:54 | disposition home or self-care (01) ==
LOC: ED 12:40 → MEDTELE 16:10
PROVIDERS: ADMIT Internal Medicine; ATTEND Hospitalist
DX: R42 Dizziness and giddiness (principal); H53.9 Unspecified visual disturbance; I10 Essential (primary) hypertension; J44.9 Chronic obstructive pulmonary disease, unspecified; J32.9 Chronic sinusitis, unspecified; I51.7 Cardiomegaly; F10.10 Alcohol abuse, uncomplicated; F17.210 Nicotine dependence, cigarettes, uncomplicated; Z79.899 Other long term (current) drug therapy
CPT/HCPCS: 36415; 70450; 70496; 70498; 70551; 71010; 80053; 80061; 81003; 83036; 83605; 83690; 85025; 93005; 93306; 96372; 99283; 99406; A9270-GY; G0378; G8978-GP-CH; G8979-GP-CH; G8980-GP-CH; J1650; Q9967

== ENCOUNTER 2018-04-14 11:05 | Emergency (ER) | payer MEDICARE ==
--- OUTSIDE RECORDS SUMMARY | 2018-04-14 11:35 | XMS REPORT ---
:1950 External Reference #:[id number] Author Organization [facility] Address [address] [place] [address] [place] [address] Phone [phone] Care Team Providers Name Role Phone Oneil Morris RPA-C Primary Care Physician Unavailable Payers Type Date Identification Numbers Payment Provider Subscriber Commercial Policy Number: [id number] [facility] Ajit (Medicare) Kaleigh Cardoza PayID: [id number] [facility] [address] [place] [id number] Problems Date Description Provider Status Onset: 03/27/2017 Dizziness and giddiness Marilou Whitney MD Active Onset: 03/27/2017 History of cerebrovascular accident without Marilou Whitney MD Active residual deficits Family History Date Family Member(s) Problem(s) Comments General Heart Disease Father Hypertension Father due to AR () Father Arthritis Mother Hypertension Mother due to AR () Mother Mother had hand deformities from arthritis First Brother Heart Disease age 8 open heart surgery Social History Type Date Description Comments Lives With Boyfriend 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 No Do you have problems with snoring, day time fatigue? Sometimes day time fatigue. Maybe some snoring not sure Allergies, Adverse Reactions, Alerts Date Description Reaction Status Severity Comments 02/22/2017 Zithromax active 02/22/2017 NKDA inactive Medications Medication Date Status Form Strength Qnty SIG Indications Ordering Provider Aspercreme Max 04/03/ Active Liquid 16% 1units apply Cecilio Roll-On 2018 daily as Dorie, Arthritis needed to M.DOsmar Strength the feet prior to walking Atorvastatin 02/28/ Active Tablets 20mg 90tabs 1 by G45.9 Richard Hollis Calcium 2017 mouth Joseph, DO every day FACC Ibuprofen / Active 200mg 3 tablets Unknown 0000 as needed (as needed) Claritin / Active Capsules 10mg 1 tab Unknown 0000 daily Mucinex / Active Tablets ER 600mg twice a Unknown 0000 12HR day as needed Metoprolol / Active Tablets 25mg 180tab take one Richard Hollis Tartrate 0000 s tablet by Jake, DO mouth FACC twice a day Clopidogrel / Active Tablets 75mg 90tabs 1 by Richard Hollis Bisulfate 0000 mouth Jake, every day FACC Alendronate / Active Tablets 70mg take 1 Unknown Sodium 0000 tablet by mouth every week (new med, has not started it) Percocet 11/25/ Hx Tablets 5-325mg 40tabs 1 by Darcie 2014 - leatha Lund M.D. 02/28/ every 4-6 2015 hour as needed pain Oxycodone HCL 0000/ Hx Capsules 1-2 four Unknown 0000 - times a 02/28/ day as 2015 needed Amoxicillin/Cl 0000/ Hx Tablets 875-125mg take one Unknown avulanate 0000 - tablet Potassium 02/23/ q12 hours 2016 Meclizine HCL 00/ Hx Tablets 25mg 1 tablet Unknown 0000 - every 8 // hours as 2017 needed for vertigo Amoxicillin 00/ Hx Capsules 500mg 1 cap Session, 0000 - twice a Oneil, RPA-C 2017 Vital Signs Date Vital Result Comment 04/03/2018 Height 67 inches 5'7" Weight 133.00 lb Heart Rate 62 /min BP Systolic Sitting 120 mmHg BP Diastolic Sitting 74 mmHg Respiratory Rate 14 /min Pain Level 1 BMI (Body Mass Index) 20.8 kg/m2 07/10/2017 Height 67 inches 5'7" Weight 130.00 lb Heart Rate 80 /min BP Systolic Sitting 128 mmHg BP Diastolic Sitting 86 mmHg BMI (Body Mass Index) 20.4 kg/m2 04/23/2017 Height 67 inches 5'7" Weight 129.00 lb with shoes Heart Rate 76 /min BP Systolic Sitting 120 mmHg Rue reg cuff BP Diastolic Sitting 72 mmHg Rue reg cuff BP Systolic Standing 116 mmHg Rue reg cuff BP Diastolic Standing 70 mmHg Rue reg cuff Respiratory Rate 16 /min BMI (Body Mass Index) 20.2 kg/m2 Ejection Fraction 55-60% 03/29/2017-echo 03/27/2017 Height 67 inches 5'7" Weight 131.12 lb Heart Rate 78 /min BP Systolic Sitting 132 mmHg BP Diastolic Sitting 78 mmHg BMI (Body Mass Index) 20.5 kg/m2 02/28/2017 Height 67 inches 5'7" Weight 126.00 lb with shoes Heart Rate 68 /min BP Systolic 120 mmHg Rue reg cuff BP Diastolic 80 mmHg Rue reg cuff BP Systolic Sitting 130 mmHg Lue reg cuff BP Diastolic Sitting 78 mmHg Lue reg cuff BP Systolic Standing 130 mmHg Lue reg cuff BP Diastolic Standing 82 mmHg Lue reg cuff Respiratory Rate 16 /min BMI (Body Mass Index) 19.7 kg/m2 Ejection Fraction 60-65% 02/13/2017-echo 05/26/2015 Height 68 inches 5'8" Weight 120.00 lb Pain Level 2 BMI (Body Mass Index) 18.2 kg/m2 05/26/2015 Height 68 inches 5'8" Weight 120.50 lb Heart Rate 72 /min BP Systolic Sitting 144 mmHg BP Diastolic Sitting 88 mmHg BMI (Body Mass Index) 18.3 kg/m2 05/09/2015 Height 68 inches 5'8" Weight 118.00 lb Heart Rate 72 /min BP Systolic Sitting 130 mmHg BP Diastolic Sitting 80 mmHg Body Temperature 98.0 F O2 % BldC Oximetry 98 % BMI (Body Mass Index) 17.9 kg/m2 03/31/2015 Height 68 inches 5'8" Weight 118.00 lb Pain Level 5 BMI (Body Mass Index) 17.9 kg/m2 02/17/2015 Height 68 inches 5'8" Weight 118.00 lb Pain Level 5 BMI (Body Mass Index) 17.9 kg/m2 01/20/2015 Height 68 inches 5'8" Weight 118.00 lb Pain Level 5 only with movement BMI (Body Mass Index) 17.9 kg/m2 12/30/2014 Height 68 inches 5'8" Weight 118.00 lb Pain Level 5 BMI (Body Mass Index) 17.9 kg/m2 12/16/2014 Height 68 inches 5'8" Weight 118.00 lb Pain Level 3 BMI (Body Mass Index) 17.9 kg/m2 12/02/2014 Height 68 inches 5'8" Weight 118.00 lb Pain Level 9 BMI (Body Mass Index) 17.9 kg/m2 11/25/2014 Height 68 inches 5'8" Weight 118.00 lb Heart Rate 93 /min BP Systolic Sitting 191 mmHg BP Diastolic Sitting 94 mmHg Pain Level 10 BMI (Body Mass Index) 17.9 kg/m2 Results Test Date Test Result H/L Range Note Laboratory test 02/12/2017 Hemoglobin A1c (Glyco 5.7 % Less than 6.0 1 finding HGB) Urinalysis Profile 02/12/2017 Urine Color Straw Urine Appearance Clear Urine Specific [place] 1.009 Low 1.010-1.030 Urine pH 7.0 5-9 Urine Urobilinogen Negative Negative Urine Ketones Trace Negative Urine Protein Negative Negative Urine Leukocytes Negative Negative Urine Blood Negative Negative Urine Nitrite Negative Negative Urine Bilirubin Negative Negative Urine Glucose Negative Negative Laboratory test finding 02/12/2017 Lipase 22 U/L 11.0-82.0 Lactic Acid 0.8 mmol/L 0.5-2.0 2 Comp Metabolic Panel 02/12/2017 Sodium 138 mmol/L 133-145 Chloride 104 mmol/L 101-111 Co2 Carbon Dioxide 29 mmol/L 22-32 Glucose 89 mg/dL 70-100 Blood Urea Nitrogen 9 mg/dL 6-24 Creatinine 0.57 mg/dL 0.51-0.95 BUN/Creatinine Ratio 15.8 8-20 Calcium 9.2 mg/dL 8.6-10.3 Total Protein 6.7 g/dL 6.4-8.9 Albumin 4.0 g/dL 3.2-5.2 Globulin 2.7 g/dL 2-4 Albumin/Globulin Ratio 1.5 1-3 Total Bilirubin 0.40 mg/dL 0.2-1.0 Alkaline Phosphatase 55 U/L 34-104 Alt 11 U/L 7-52 Egfr Non- 106.1 >60 Egfr 136.5 >60 3 Potassium 4.5 mmol/L 3.5-5.0 Anion Gap 5 mmol/L 2-11 Ast 19 U/L 13-39 CBC Auto Diff 02/12/2017 White Blood Count 8.6 10^3/uL 3.5-10.8 Red Blood Count 5.03 10^6/uL 4.0-5.4 Hemoglobin 15.4 g/dL 12.0-16.0 Hematocrit 47 % 35-47 Mean Corpuscular Volume 93 fL 80-97 Mean Corpuscular Hemoglobin 31 pg 27-31 Mean Corpuscular HGB Conc 33 g/dL 31-36 Red Cell Distribution Width 13 % 10.5-15 Platelet Count 264 10^3/uL 150-450 Mean Platelet Volume 7 um3 Low 7.4-10.4 Abs Neutrophils 5.2 10^3/uL 1.5-7.7 Abs Lymphocytes 2.5 10^3/uL 1.0-4.8 Abs Monocytes 0.5 10^3/uL 0-0.8 Abs Eosinophils 0.3 10^3/uL 0-0.6 Abs Basophils 0.1 10^3/uL 0-0.2 Abs Nucleated RBC 0 10^3/uL Granulocyte % 60.4 % 38-83 Lymphocyte % 28.8 % 25-47 Monocyte % 6.1 % 1-9 Eosinophil % 3.4 % 0-6 Basophil % 1.3 % 0-2 Nucleated Red Blood Cells % 0 1 Therapeutic target for the treatment of diabetes Mellitus patients is <7% HBA1C, and in selective patients <6.0%.Please refer to [place] [employer] Diabetic care guidelines for further information. 2 [facility] Severe Sepsis and Septic Shock Management Bundle Measure requires all lactic acids initially measuring >2.0 mmol/L be repeated. 3 Because ethnic data is not always readily available, this report includes an eGFR for both -Americans and non- Americans. The National Kidney Disease Education Program (NKDEP) does not endorse the use of the MDRD equation for patients that are not between the ages of 18 and 70, are , have extremes of body size, muscle mass, or nutritional status, or are non- or non-. According to the National Kidney Foundation, irrespective of diagnosis, the stage of the disease is based on the level of kidney function: Stage Description GFR(mL/min/1.73 m(2)) 1 Kidney damage with normal or decreased GFR 90 2 Kidney damage with mild decrease in GFR 60-89 3 Moderate decrease in GFR 30-59 4 Severe decrease in GFR 15-29 5 Kidney failure <15 (or dialysis) Procedures Date CPT Code Description Status 05/29/2017 67631 ECHO Stress Test Incl Perf Contiuous ekg Monitoring Completed W/Phys Superv 03/29/2017 67869 Echocardiogram, Limited Study Completed 03/07/2017 30145 Event Monitor/Phys Review/Interp. Completed 02/28/2017 15303 EKG Tracing & Interpretation Completed 02/13/2017 00618 ECHO Transthorasic Realtime 2D W Doppler & Color Flow Completed Hosp 05/13/2015 Mammogram Completed 11/25/2014 17409 Closed trtmt prox humeral fx Completed Encounters Type Date Location Provider CPT E/M Dx Office Visit 07/10/2017 11:30a [facility] [address] Z86.73 R42 Z72.0 Z79.02 Office Visit 04/23/2017 11:45a [facility] [place] [address] I11.9 [facility] FACC Z86.73 R42 Z72.0 R06.02 Office Visit 03/27/2017 9:00a [facility] [address] Z86.73 R42 Z79.02 Z72.0 Office Visit 02/28/2017 10:40a [facility] [place] [address] I11.9 [facility] FACC G45.9 Z72.0 Office Visit 02/13/2017 10:31a [facility] [address] R42 R94.02 Office Visit 02/12/2017 1:38p [facility], [place] [address] G45.9 Hospitalists J01.90 R42 Office Visit 05/26/2015 9:40a [facility] [place] [address] N64.59 [facility] Office Visit 05/26/2015 10:20a [facility] Darcie Lund [address] S42.294D Of Senia Garduno Office Visit 05/09/2015 2:00p [facility] [place] [address] 611.79 [facility] 611.71 Office Visit 03/31/2015 9:50a [facility] Darcie Lund 44119 812.09 Of [facility] M.[facility] Plan of Care Future Appointment(s):04/08/2018 11:45 am - Richard Joseph, DO FACC at [facility]04/03/2018 - Cecilio Oshea M.D.M06.4 Inflammatory polyarthropathyFollow up:Follow up in 3 to 4 weeks or sooner if xffeyzB08.049 Primary osteoarthritis, unspecified handM79.673 Pain in unspecified footR20.8 Other disturbances of skin pmviwcrnxX19.0 Age-related osteoporosis w/o current pathological fractureComments:1. Don??t smoke any cigarettes. Each cigarette you smoke damages your lungs, your blood vessels, andcells throughout your body. Even occasional smoking is harmful.2. Write down why you want to quit. Do you want to??Be around for your loved ones?Have better health?Set a good example for your children?Protect your family from breathing other people??s smoke?Really wanting to quit smoking is very important to how much success you will have in quitting.3. Know that it will take commitment and effort toquit smoking. Nearly all smokers have some feelings of nicotine withdrawal when they try to quit. Nicotine is addictive.a Knowing this will help you deal with withdrawal symptoms that can occur, such as bad moods and really wanting to smoke.Your chances of quitting are better if you don't do it aloneThere are many ways smokers quit, including using nicotine replacement products (gum and patches) or FDA-approved, non-nicotine cessation medications. Some people do not experience any withdrawal symptoms. For most people, symptoms only last a few days to a couple of weeks.a Take quitting one day at a time, even one minute at a time??whatever you need to succeed.4. Get help if you want it. Smokers can receive free resources and assistance to help them quit by calling the 4-103-MXXT-NOW quitline ( ) or by visiting [facility] [place]s Tips From Former Smokers??. Your health care providers are also a good source for help and support.Concerned about weight gain? It??s a common concern, but not everyone gains weight when they stop smoking.b Learn ways to help you control your weight as you quit smoking.5. Remember this good news! More than half of all adult smokers have quit, and you can, too.c Millions of people have learned to face life without a cigarette. Quitting smoking is the single most important step you can take to protect your health and the health of your family.
[2018-04-14 11:54] LABS: ABS Basophils 0 10^3/ul (0-0.2); ABS Eosinophils 0.2 10^3/ul (0-0.6); ABS Lymphocytes 1.6 10^3/ul (1.0-4.8); ABS Monocytes 0.5 10^3/ul (0-0.8); ABS Neutrophils 5.1 10^3/ul (1.5-7.7); ABS Nucleated RBC 0 10^3/ul; Eosinophil % 2.2 % (0-6); Hematocrit 41 % (35-47); Hemoglobin 13.9 g/dl (12.0-16.0); Lymphocyte % 21.3 % (25-47); Mean Corpuscular HGB Conc 34 g/dl (31-36); Mean Corpuscular Hemoglobin 30 pg (27-31); Mean Corpuscular Volume 88 fL (80-97); Mean Platelet Volume 7.3 um3 (7.4-10.4); Nucleated Red Blood Cells % 0; Platelet Count 227 10^3/ul (150-450); Red Blood Count 4.62 10^6/ul (4.00-5.40); Red Cell Distribution Width 14 % (10.5-15); White Blood Count 7.3 10^3/ul (3.5-10.8)
--- NOTE | 2018-04-14 11:56 | ED ---
Headache - HPI Summary HPI Summary: The pt is a 68 y/o female presenting to the [facility] c/o of since 09:30 this morning . She suspects it is due to to Alendronate Sodium tablets (Fosamax) which she just started taking today. She notes shakiness, chills and lightheadedness but denies palpitations, CP, SOB and difficulty speaking. She also reports elevated BP with a high of 200 /87 measured at home at 07:30. The pt reports an episode of a mini-stroke in January 2017. Her PCP JESUS Che and her paper feeder is Dr. Richard Joseph. Home Medications Medication Instructions Recorded Confirmed Type Alendronate (NF) [Fosamax (NF)] 70 mg PO WEEKLY 04/14/18 04/14/18 History Atorvastatin* [Lipitor*] 20 mg PO DAILY 04/14/18 04/14/18 History Clopidogrel TAB* [Plavix TAB*] 75 mg PO DAILY 04/14/18 04/14/18 History Metoprolol Tartrate TAB* 25 mg PO BID 04/14/18 04/14/18 History [Lopressor TAB*] Initial Vital Signs Temp 98 F 04/14/18 11:13 Pulse 68 04/14/18 11:13 Resp 17 04/14/18 11:13 BP 147/73 04/14/18 11:13 Pulse Ox 98 04/14/18 11:13 - History Of Current Complaint Chief Complaint: EDHeadache Stated Complaint: HIGH BP Time Seen by Provider: 04/14/18 11:32 Hx Obtained From: Patient Onset/Duration: Sudden Onset, Started hours ago - At 09:3) this morning, Still Present Initially Headache Was: Moderate Currently Pain Is: Moderate Timing: Constant Character: Pressure Location of Headache: Frontal Allevating Factors: Nothing Associated Signs And Symptoms: Other (Noted In Comments) - Positive: shakiness, chills and lightheadedness - Allergies/Home Medications Allergies/Adverse Reactions: Allergies Allergy/AdvReac Type Severity Reaction Status Date / Time No Known Allergies Allergy Verified 05/01/13 09:25 Home Medications: Home Medications Alendronate (NF) [Fosamax (NF)] 70 mg PO WEEKLY 04/14/18 [History Confirmed ] Atorvastatin* [Lipitor*] 20 mg PO DAILY 04/14/18 [History Confirmed 04/14/18] Clopidogrel TAB* [Plavix TAB*] 75 mg PO DAILY 04/14/18 [History Confirmed ] Metoprolol Tartrate TAB* [Lopressor TAB*] 25 mg PO BID 04/14/18 [History Confirmed 04/14/18] PMH/Surg Hx/FS Hx/Imm Hx Previously Healthy: No Endocrine/Hematology History: Denies: Hx Diabetes Cardiovascular History: Reports: Hx Atrial Fibrillation, Hx Hypertension Denies: Hx Pacemaker/ICD Respiratory History: Reports: Hx Chronic Bronchitis Denies: Hx Chronic Obstructive Pulmonary Disease (COPD) History: Denies: Hx Dialysis Musculoskeletal History: Reports: Hx Arthritis, Hx Osteoporosis, Other Musculoskeletal History - right humerus fracture Sensory History: Reports: Hx Contacts or Glasses Denies: Hx Hearing Aid Opthamlomology History: Reports: Hx Contacts or Glasses Neurological History: Reports: Hx CVA - 01/2017-see report, pt unable to complete MRI Denies: Hx Dementia, Hx Migraine, Hx Seizures Psychiatric History: Denies: Hx Panic Disorder - Surgical History Surgery Procedure, Year, and Place: c section;. ONE FALLOPIAN TUBE REMOVED Infectious Disease History: No Infectious Disease History: Denies: History Other Infectious Disease, Traveled Outside the [place] in Last 30 Days - Family History Known Family History: Positive: Other - Notes [place]- father, mother and brother and paternal ; Denies Breast CA - Social History Occupation: Retired Lives: Alone Alcohol Use: Occasionally Alcohol Amount: 2 large glasses of wine per day Substance Use Type: Reports: None Smoking Status (MU): Light Every Day Tobacco Smoker Type: Cigarettes Amount Used/How Often: 1 pack per day Length of Time of Smoking/Using Tobacco: 40 years Have You Smoked in the Last Year: Yes Review of Systems Constitutional: Negative - Speech impairment Positive: Chills, Other - Positive: shakiness, lightheadedness Positive: Other - Elevated blood pressure (200/87) at home. Negative: Palpitations, Chest Pain Negative: Shortness Of Breath Gastrointestinal: Negative Skin: Negative Neurological: Negative Psychological: Normal All Other Systems Reviewed And Are Negative: Yes Physical Exam - Summary Physical Exam Summary: Appearance: Well-appearing, moderate pain distress, well-nourished Skin: Warm, color reflects adequate perfusion, dry Head: Normal Head/Face inspection, atraumatic Eyes: Conjunctiva clear, PERRL, EOMI ENT: Normal inspection Neck: Supple, no nodes, no JVD Respiratory: Lungs clear, normal breath sounds, no respiratory distress Cardio: RRR, No murmur, pulses normal, brisk capillary refill Abdomen: Soft, nontender Bowel sounds: Present Musculoskeletal: Strength Intact/ROM intact, no calf tenderness, no edema. Psychological: Normal Neuro: A&O x3, CN II-XII intact, motor function 5/5, sensation intact, cerebellar normal Triage Information Reviewed: Yes Vital Signs On Initial Exam: Initial Vitals Temp Pulse Resp BP Pulse Ox 98 F 68 17 147/73 98 04/14/18 11:13 04/14/18 11:13 04/14/18 11:13 04/14/18 11:13 04/14/18 11:13 Vital Signs Reviewed: Yes Diagnostics - Vital Signs Vital Signs Temp Pulse Resp BP Pulse Ox 04/14/18 11:13 98 F 68 17 147/73 98 - Laboratory Result Diagrams: 04/14/18 11:46 04/14/18 11:46 Lab Statement: Any lab studies that have been ordered have been reviewed, and results considered in the medical decision making process. - Radiology CXR Radiology Interpretation Completed By: Radiologist - IMPRESSION: COPD. The ED physician has reviewed this radiology report. - CT Brain CT CT Interpretation Completed By: Radiologist - IMPRESSION: NO ACUTE INTRACRANIAL PATHOLOGY. The ED physician has reviewed this radiology report - EKG 1143 Cardiac Rate: NL EKG Rhythm: Sinus Rhythm ST Segment: Non-Specific Ectopy: None EKG Interpretation: nl AVIVCT,nl QTc, axis -8, no acute changes EKG Comparison: No Significant Change - c/w 02/12/17 Re-Evaluation - Re-Evaluation First Eval Re-Evaluation Time: 15:30 Change: Improved - The pt reports that she feels better with a slight KELLY and is ready to go home BP= 125/66 ; heart rate= 86 bpm Headache Course/Dx - Course Course Of Treatment: 68 yo F with hx HTN, CVA presents to ED for eval after taking Fosamax for the first time and having KELLY, BP 200/87, shakiness, chills, lightheadedness. CT brain, CXR, labs and exam showed no evidence of CVA or cardiac ischemia and pt's BP improved without medication. Pt is given acetaminophen for KELLY, and is discharged, and advised to avoid Fosamax in the future. - Diagnoses Differential Diagnosis/HQI/PQRI: CVA, TIA, Tension Headache, Other - medication adverse effect Provider Diagnoses: Hypertensive urgency, Cephalgia, Medication adverse effect Discharge - Sign-Out/Discharge Documenting (check all that apply): Patient Departure - home - Discharge Plan Condition: Stable Disposition: HOME Patient Education Materials: Alendronate (By mouth) Referrals: Oneil Wells [Primary Care Provider] - 2 Days Additional Instructions: You had an adverse reaction to the alendronate with high blood pressure and other symptoms. We have given you information about the medication but we recommend that you should not take this medication again, and may label yourself as allergic to it. The blood tests and chest xray and CT brain that we did do not show any abnormalities. Return to the ER if you have any new or worsening symptoms. - Billing Disposition and Condition Condition: STABLE Disposition: Home - Attestation Statements Document Initiated by Scribe: Yes Documenting Scribe: Tyra Kearney Provider For Whom Brittanyibe is Documenting (Include Credential): Jacque Rivers MD Scribe Attestation: Tyra Mack , scribed for Jacque Rivers MD on 04/16/18 at 2323. Scribe Documentation Reviewed: Yes Provider Attestation: The documentation as recorded by the Tyra sommers accurately reflects the service I personally performed and the decisions made by , Jacque Rivers MD
[2018-04-14 12:03] LABS: INR 0.95 (0.77-1.02)
[2018-04-14 12:12] LABS: EGFR Non-African American 115.1 (>60)
--- NOTE | 2018-04-14 12:12 | RAD ---
HISTORY: HTN COMPARISONS: February 12, 2017 VIEWS: 1: frontal portable view of the chest at 12:00 noon FINDINGS: LINES AND TUBES: None. CARDIOMEDIASTINAL SILHOUETTE: The cardiomediastinal silhouette is normal for portable technique. PLEURA: The costophrenic angles are sharp. No pleural abnormalities are noted. LUNG PARENCHYMA: There is hyperinflation. ABDOMEN: The upper abdomen is clear. There is no subphrenic gas. BONES AND SOFT TISSUES: No bone or soft tissue abnormalities are noted. IMPRESSION: COPD.
--- NOTE | 2018-04-14 12:38 | RAD ---
HISTORY: KELLY, HTN COMPARISONS: January 2017 TECHNIQUE: Multiple contiguous axial CT scans were obtained of the head without intravenous contrast. FINDINGS: HEMORRHAGE/INFARCT: There is no hemorrhage or acute infarct. MASSES/SHIFT: There is no mass or shift. EXTRA-AXIAL SPACES: There are no extra-axial fluid collections. SULCI AND VENTRICLES: The sulci and ventricles are normal in size and position for the patient's stated age. CEREBRUM: There is hypoattenuation of the periventricular and subcortical white matter. BRAINSTEM: There are no focal parenchymal abnormalities. CEREBELLUM: There are no focal parenchymal abnormalities. VESSELS: The vessels are grossly normal. PARANASAL SINUSES: The paranasal sinuses are clear. ORBITS: The orbits are unremarkable. BONES AND SOFT TISSUE: No bone or soft tissue abnormalities are noted. OTHER: None IMPRESSION: NO ACUTE INTRACRANIAL PATHOLOGY.
[2018-04-14] MEDS ORDERED: Acetaminophen TAB* 325 MG PO ONE (15:46)
[2018-04-14 16:16] VITALS: BP 145/88
== END 2018-04-14 16:13 | disposition home or self-care (01) ==
LOC: ED 11:05
DX: I16.0 Hypertensive urgency (principal); R51 Headache; T50.905A Adverse effect of unspecified drugs, medicaments and biological substances, initial encounter; Z79.01 Long term (current) use of anticoagulants; F17.210 Nicotine dependence, cigarettes, uncomplicated; Y92.9 Unspecified place or not applicable
CPT/HCPCS: 36415; 70450; 71045; 80053; 82550; 82553; 83605; 83880; 84436; 84484; 85025; 85379; 85610; 85730; 93005; 99282; A9270-GY